=== PATIENT | female | born 1955 | race African-American/Black ===

== ENCOUNTER 2022-02-14 11:19 | Inpatient (IN) | payer MEDICARE, OTHER ==
[~2022-02-14 11:19] MED LIST: Iopamidol-370 76% 500 ML 1 ML ONE
[2022-02-14 14:42] LABS: #Lymphocytes 0.9 thou/uL (1.20-3.40); #Monocytes 0.5 thou/uL (0.11-0.59); #Neutrophils 4.2 thou/uL (1.40-6.50); %Basophils 0.7 % (0.0-1.0); %Eosinophils 0.4 % (0.0-10.0); %Lymphocytes 16.7 % (21.0-51.0); %Monocytes 7.9 % (0.0-10.0); %Neutrophils 74.2 % (42.0-75.0); Mean Corpuscular HGB CONC 32.6 g/dL (32.0-36.0); Mean Corpuscular Volume 86.1 fl (78.0-98.0); Mean Platelet Volume 9.6 fL (7.4-10.4); Platelet Count 179 10x3/uL (130-400); RBC Distribution Width 13.9 % (11.5-14.5); Red Blood Cell (RBC) Count 3.91 mill/uL (4.20-5.40); White Blood Cell (WBC) Count 5.6 10x3/uL (4.8-10.8)
[2022-02-14 14:55] LABS: INR-International Normal Ratio 1.2; PTT 28.2 sec (22.9-36.1); Prothrombin Time 15.2 sec (12.0-14.7)
[2022-02-14 15:03] LABS: ALT (SGPT) 12 U/L (8-55); AST (SGOT) 23 U/L (5-34); Albumin 3.7 g/dL (3.4-4.8); Alkaline Phosphatase 71 U/L (40-110); Anion Gap 13 mmol/L (10-20); BUN (Urea Nitrogen) 18 mg/dL (9.8-20.1); Bilirubin, Total 0.6 mg/dL (0.2-1.2); Calc. Creatinine Clearance 0 mL/min (70-130); Carbon Dioxide 22 mmol/L (23-31); Chloride 109 mmol/L (98-107); Estimated GFR 51; Globulin 3.2 g/dL (2.4-3.5); Glucose 104 mg/dL (80-115); Potassium 3.9 mmol/L (3.5-5.1); Protein, Total 6.9 g/dL (5.8-8.1); Sodium 140 mmol/L (136-145)
[2022-02-14 15:34] LABS: CKMB 7.6 ng/mL (0-6.6)
[2022-02-14] MEDS: Dextrose 5 %-0.45 % NaCl 1,000 ML IV SCH (17:38)
[2022-02-14] MEDS: Atorvastatin Calcium 40 MG TAB PO SCH (19:39)
[2022-02-14 22:26] LABS: Troponin I 0.569 ng/mL (< 0.028)
[2022-02-15 01:30] LABS: Troponin I 0.596 ng/mL (< 0.028)
[2022-02-15 05:46] LABS: Cardiac Risk 2.8 (Less than 4.5)
[2022-02-15] MEDS: Dextrose 5 %-0.45 % NaCl 1,000 ML IV SCH ×2 (06:17→18:18)
[2022-02-15] MEDS ORDERED: Aspirin 81 mg Enteric Coated Tablet PO SCH (09:00)
[2022-02-15] MEDS: Enoxaparin Sodium 40 MG/0.4 ML SYRINGE SC SCH (12:27)
[2022-02-15] MEDS: Clopidogrel Bisulfate 75 MG TAB PO SCH (12:27)
[2022-02-15] MEDS: Atorvastatin Calcium 40 MG TAB PO SCH (21:10)
[2022-02-16 05:26] LABS: Hemoglobin 10.6 g/dL (12.0-16.0); Mean Corpuscular HGB CONC 32.2 g/dL (32.0-36.0); Mean Corpuscular Hemoglobin 27.2 pg (27.0-31.0); Mean Corpuscular Volume 84.6 fl (78.0-98.0); Mean Platelet Volume 9.6 fL (7.4-10.4); Platelet Count 168 10x3/uL (130-400); RBC Distribution Width 13.7 % (11.5-14.5); Red Blood Cell (RBC) Count 3.88 mill/uL (4.20-5.40); White Blood Cell (WBC) Count 5.4 10x3/uL (4.8-10.8)
[2022-02-16 05:34] LABS: Anion Gap 13 mmol/L (10-20); BUN (Urea Nitrogen) 8 mg/dL (9.8-20.1); Calc. Creatinine Clearance 72 mL/min (70-130); Calcium 8.9 mg/dL (7.8-10.44); Carbon Dioxide 22 mmol/L (23-31); Chloride 109 mmol/L (98-107); Estimated GFR 65; Glucose 124 mg/dL (80-115); Potassium 3.7 mmol/L (3.5-5.1); Sodium 140 mmol/L (136-145)
[2022-02-16] MEDS: Dextrose 5 %-0.45 % NaCl 1,000 ML IV SCH ×2 (06:33→22:38)
[2022-02-16] MEDS: Aspirin 300 MG Suppository PR SCH (09:20)
[2022-02-16] MEDS: Enoxaparin Sodium 40 MG/0.4 ML SYRINGE SC SCH (09:20)
[2022-02-16] MEDS: Clopidogrel Bisulfate 75 MG TAB PO SCH (09:20)
[2022-02-16] MEDS: Atorvastatin Calcium 40 MG TAB PO SCH (22:38)
[2022-02-17] MEDS: Atorvastatin Calcium 40 MG TAB PO SCH (06:11)
[2022-02-17] MEDS: Dextrose 5 %-0.45 % NaCl 1,000 ML IV SCH (09:01)
[2022-02-17] MEDS: Enoxaparin Sodium 40 MG/0.4 ML SYRINGE SC SCH (09:01)
[2022-02-17] MEDS: Clopidogrel Bisulfate 75 MG TAB PO SCH (09:20)
[2022-02-17] MEDS: Aspirin 300 MG Suppository PR SCH (09:20)
[2022-02-17] MEDS ORDERED: Carvedilol 25 MG TAB PER TUBE SCH (11:00)
[2022-02-17] MEDS ORDERED: Furosemide 20 MG/2 ML VIAL SLOW IVP SCH (11:00)
[2022-02-17] MEDS ORDERED: FLU VACC QS2022-23(65YR UP)/PF 240 MCG/0.7 ML SYRINGE IM ONE (17:45)
[2022-02-17] MEDS: Carvedilol 25 MG TAB PER TUBE SCH (22:50)
[2022-02-17] MEDS: Atorvastatin Calcium 40 MG TAB PER TUBE SCH (22:50)
[2022-02-17] MEDS: Furosemide 20 MG/2 ML VIAL SLOW IVP SCH (22:52)
[2022-02-18 06:47] LABS: #Eosinphils 0.2 thou/uL (0.0-0.7); #Lymphocytes 1.8 thou/uL (1.20-3.40); #Monocytes 0.6 thou/uL (0.11-0.59); #Neutrophils 2.8 thou/uL (1.40-6.50); %Basophils 0.7 % (0.0-1.0); %Eosinophils 3.4 % (0.0-10.0); %Lymphocytes 33.2 % (21.0-51.0); %Monocytes 11.1 % (0.0-10.0); %Neutrophils 51.5 % (42.0-75.0); Hemoglobin 12.4 g/dL (12.0-16.0); Mean Corpuscular HGB CONC 32.8 g/dL (32.0-36.0); Mean Corpuscular Hemoglobin 27.7 pg (27.0-31.0); Mean Corpuscular Volume 84.6 fl (78.0-98.0); Mean Platelet Volume 9.8 fL (7.4-10.4); Platelet Count 198 10x3/uL (130-400); RBC Distribution Width 13.3 % (11.5-14.5); Red Blood Cell (RBC) Count 4.49 mill/uL (4.20-5.40); White Blood Cell (WBC) Count 5.3 10x3/uL (4.8-10.8)
[2022-02-18 07:07] LABS: Anion Gap 17 mmol/L (10-20); BUN (Urea Nitrogen) 15 mg/dL (9.8-20.1); Calc. Creatinine Clearance 66 mL/min (70-130); Calcium 9.3 mg/dL (7.8-10.44); Carbon Dioxide 23 mmol/L (23-31); Chloride 103 mmol/L (98-107); Estimated GFR 59; Glucose 117 mg/dL (80-115); Magnesium 1.3 mg/dL (1.6-2.6); Potassium 3.6 mmol/L (3.5-5.1); Sodium 139 mmol/L (136-145)
[2022-02-18] MEDS ORDERED: Magnesium Sulfate In Water 4 GM in Premix Bag 1 BAG IVPB SCH (08:00)
[2022-02-18] MEDS: Clopidogrel Bisulfate 75 MG TAB PER TUBE SCH (08:35)
[2022-02-18] MEDS: Carvedilol 25 MG TAB PER TUBE SCH ×2 (08:35→21:17)
[2022-02-18] MEDS: Aspirin 300 MG Suppository PR SCH (08:35)
[2022-02-18] MEDS: Enoxaparin Sodium 40 MG/0.4 ML SYRINGE SC SCH (08:35)
[2022-02-18] MEDS: Furosemide 20 MG/2 ML VIAL SLOW IVP SCH ×2 (08:36→21:17)
[2022-02-18] MEDS ORDERED: Losartan 25 MG TAB PER TUBE SCH (09:00)
[2022-02-18 16:36] LABS: Actual Bicarbonate (HCO3a) 27.1 mEq/L (22-28); Base Excess (BEa) 3.6 mEq/L (-2.0 to +3.0); CO2 Tension 37.2 mmHg (35.0-45.0); Calcium, Ionized (arterial) 1.21 mmol/L (1.12-1.30); Carboxyhemoglobin (COHb) 0.3 gm% (0.0-3.0); Hemoglobin (Hb) 12.6 g/dL (12.0-16.0); O2 Tension (PaO2), arterial 78.6 mmHg (> 80.0); Potassium - ABG Lab 3.84 mmol/L (3.70-5.30); pH, Arterial 7.48 (7.35-7.45)
[2022-02-18 16:39] LABS: Puncture Site RBA
[2022-02-18] MEDS ORDERED: Dexamethasone 4 mg/ml Vial SLOW IVP SCH ×2 (17:45→18:00)
[2022-02-18] MEDS ORDERED: Dexamethasone 4 MG in Sodium Chloride 0.9% 50 ML IVPB SCH (17:45)
[2022-02-18] MEDS ORDERED: Mannitol 12.5 GM/50 ML SLOW IVP SCH (19:15)
[2022-02-18] MEDS: Sodium Chloride 0.9% 1,000 ML IV SCH (19:28)
[2022-02-18] MEDS: Pantoprazole 40 MG VIAL IVP SCH (21:17)
[2022-02-18] MEDS: Atorvastatin Calcium 40 MG TAB PER TUBE SCH (21:17)
[2022-02-19 04:22] LABS: #Eosinphils 0.1 thou/uL (0.0-0.7); #Lymphocytes 1.4 thou/uL (1.20-3.40); #Monocytes 0.7 thou/uL (0.11-0.59); #Neutrophils 4.4 thou/uL (1.40-6.50); %Basophils 0.6 % (0.0-1.0); %Eosinophils 1.8 % (0.0-10.0); %Lymphocytes 20.6 % (21.0-51.0); %Monocytes 10.4 % (0.0-10.0); %Neutrophils 66.6 % (42.0-75.0); Hemoglobin 11.4 g/dL (12.0-16.0); Mean Corpuscular HGB CONC 32.2 g/dL (32.0-36.0); Mean Corpuscular Hemoglobin 27.5 pg (27.0-31.0); Mean Corpuscular Volume 85.4 fl (78.0-98.0); Mean Platelet Volume 9.9 fL (7.4-10.4); Platelet Count 206 10x3/uL (130-400); RBC Distribution Width 13.3 % (11.5-14.5); Red Blood Cell (RBC) Count 4.15 mill/uL (4.20-5.40); White Blood Cell (WBC) Count 6.6 10x3/uL (4.8-10.8)
[2022-02-19 04:43] LABS: Anion Gap 17 mmol/L (10-20); BUN (Urea Nitrogen) 27 mg/dL (9.8-20.1); Calc. Creatinine Clearance 43 mL/min (70-130); Carbon Dioxide 23 mmol/L (23-31); Chloride 103 mmol/L (98-107); Estimated GFR 35; Glucose 175 mg/dL (80-115); Magnesium 2.2 mg/dL (1.6-2.6); Potassium 3.7 mmol/L (3.5-5.1); Sodium 139 mmol/L (136-145)
[2022-02-19] MEDS: Carvedilol 25 MG TAB PER TUBE SCH ×2 (10:06→20:09)
[2022-02-19] MEDS: Pantoprazole 40 MG VIAL IVP SCH ×2 (10:06→20:09)
[2022-02-19] MEDS: Furosemide 20 MG/2 ML VIAL SLOW IVP SCH ×2 (10:06→20:09)
[2022-02-19] MEDS: Losartan 25 MG TAB PER TUBE SCH (10:07)
[2022-02-19] MEDS: Sodium Chloride 0.9% 1,000 ML IV SCH (15:16)
[2022-02-19] MEDS: Atorvastatin Calcium 40 MG TAB PER TUBE SCH (20:09)
[2022-02-20 04:17] LABS: #Eosinphils 0.2 thou/uL (0.0-0.7); #Lymphocytes 2.1 thou/uL (1.20-3.40); #Monocytes 1.1 thou/uL (0.11-0.59); %Basophils 0.1 % (0.0-1.0); %Eosinophils 1.9 % (0.0-10.0); %Lymphocytes 24.5 % (21.0-51.0); %Monocytes 13.4 % (0.0-10.0); Hemoglobin 11.1 g/dL (12.0-16.0); Mean Corpuscular HGB CONC 32.3 g/dL (32.0-36.0); Mean Corpuscular Hemoglobin 27.2 pg (27.0-31.0); Mean Corpuscular Volume 84.3 fl (78.0-98.0); Mean Platelet Volume 9.7 fL (7.4-10.4); Platelet Count 211 10x3/uL (130-400); RBC Distribution Width 13.2 % (11.5-14.5); Red Blood Cell (RBC) Count 4.08 mill/uL (4.20-5.40); White Blood Cell (WBC) Count 8.4 10x3/uL (4.8-10.8)
[2022-02-20 04:24] LABS: Anion Gap 16 mmol/L (10-20); BUN (Urea Nitrogen) 37 mg/dL (9.8-20.1); Calc. Creatinine Clearance 40 mL/min (70-130); Calcium 9.1 mg/dL (7.8-10.44); Carbon Dioxide 23 mmol/L (23-31); Chloride 105 mmol/L (98-107); Estimated GFR 33; Glucose 133 mg/dL (80-115); Magnesium 1.9 mg/dL (1.6-2.6); Potassium 4.3 mmol/L (3.5-5.1); Sodium 140 mmol/L (136-145)
[2022-02-20] MEDS: Carvedilol 25 MG TAB PER TUBE SCH ×2 (10:34→20:52)
[2022-02-20] MEDS: Furosemide 20 MG/2 ML VIAL SLOW IVP SCH ×2 (10:35→20:53)
[2022-02-20] MEDS: Pantoprazole 40 MG VIAL IVP SCH ×2 (10:35→20:53)
[2022-02-20] MEDS: Losartan 25 MG TAB PER TUBE SCH (10:35)
[2022-02-20] MEDS: Sodium Chloride 0.9% 1,000 ML IV SCH (10:36)
[2022-02-20] MEDS ORDERED: Albumin 25% 25 GM/100 ML BOT IVPB SCH (12:30)
[2022-02-20] MEDS: Albumin 25% 25 GM/100 ML BOT IVPB SCH (16:56)
[2022-02-20] MEDS: Atorvastatin Calcium 40 MG TAB PER TUBE SCH (20:52)
[2022-02-21] MEDS: Albumin 25% 25 GM/100 ML BOT IVPB SCH ×2 (00:57→05:14)
[2022-02-21 04:13] LABS: #Eosinphils 0.2 thou/uL (0.0-0.7); #Lymphocytes 1.6 thou/uL (1.20-3.40); #Monocytes 0.9 thou/uL (0.11-0.59); #Neutrophils 4.4 thou/uL (1.40-6.50); %Basophils 0.4 % (0.0-1.0); %Eosinophils 2.6 % (0.0-10.0); %Lymphocytes 22.2 % (21.0-51.0); %Monocytes 12.4 % (0.0-10.0); %Neutrophils 62.5 % (42.0-75.0); Hemoglobin 9.5 g/dL (12.0-16.0); Mean Corpuscular Volume 84.4 fl (78.0-98.0); Mean Platelet Volume 9.8 fL (7.4-10.4); Platelet Count 200 10x3/uL (130-400); RBC Distribution Width 13.2 % (11.5-14.5); Red Blood Cell (RBC) Count 3.51 mill/uL (4.20-5.40); White Blood Cell (WBC) Count 7.1 10x3/uL (4.8-10.8)
[2022-02-21 04:29] LABS: Anion Gap 16 mmol/L (10-20); BUN (Urea Nitrogen) 44 mg/dL (9.8-20.1); Calc. Creatinine Clearance 46 mL/min (70-130); Calcium 9.7 mg/dL (7.8-10.44); Carbon Dioxide 26 mmol/L (23-31); Chloride 105 mmol/L (98-107); Estimated GFR 37; Glucose 140 mg/dL (80-115); Magnesium 2.1 mg/dL (1.6-2.6); Potassium 4.3 mmol/L (3.5-5.1); Sodium 143 mmol/L (136-145)
[2022-02-21] MEDS: Sodium Chloride 0.9% 1,000 ML IV SCH ×3 (06:16→18:56)
[2022-02-21] MEDS: Carvedilol 25 MG TAB PER TUBE SCH ×2 (10:04→21:01)
[2022-02-21] MEDS: Furosemide 20 MG/2 ML VIAL SLOW IVP SCH ×2 (10:04→21:02)
[2022-02-21] MEDS: Pantoprazole 40 MG VIAL IVP SCH ×2 (10:05→21:02)
[2022-02-21] MEDS: Atorvastatin Calcium 40 MG TAB PER TUBE SCH (21:01)
[2022-02-22 05:40] LABS: #Eosinphils 0.3 thou/uL (0.0-0.7); #Lymphocytes 1.9 thou/uL (1.20-3.40); #Monocytes 0.9 thou/uL (0.11-0.59); #Neutrophils 4.6 thou/uL (1.40-6.50); %Basophils 0.3 % (0.0-1.0); %Eosinophils 3.7 % (0.0-10.0); %Lymphocytes 24.7 % (21.0-51.0); %Monocytes 11.5 % (0.0-10.0); %Neutrophils 59.8 % (42.0-75.0); Hemoglobin 10.2 g/dL (12.0-16.0); Mean Corpuscular HGB CONC 31.6 g/dL (32.0-36.0); Mean Corpuscular Hemoglobin 27.2 pg (27.0-31.0); Mean Corpuscular Volume 86.1 fl (78.0-98.0); Platelet Count 224 10x3/uL (130-400); RBC Distribution Width 13.3 % (11.5-14.5); Red Blood Cell (RBC) Count 3.74 mill/uL (4.20-5.40); White Blood Cell (WBC) Count 7.7 10x3/uL (4.8-10.8)
[2022-02-22] MEDS: Sodium Chloride 0.9% 1,000 ML IV SCH ×2 (05:47→15:30)
[2022-02-22 05:57] LABS: Anion Gap 14 mmol/L (10-20); BUN (Urea Nitrogen) 46 mg/dL (9.8-20.1); Calc. Creatinine Clearance 49 mL/min (70-130); Carbon Dioxide 27 mmol/L (23-31); Chloride 105 mmol/L (98-107); Estimated GFR 39; Glucose 140 mg/dL (80-115); Magnesium 1.9 mg/dL (1.6-2.6); Potassium 4.6 mmol/L (3.5-5.1); Sodium 141 mmol/L (136-145)
[2022-02-22] MEDS: Carvedilol 25 MG TAB PER TUBE SCH ×2 (09:25→20:40)
[2022-02-22] MEDS: Pantoprazole 40 MG VIAL IVP SCH ×2 (09:28→20:40)
[2022-02-22] MEDS: Furosemide 20 MG/2 ML VIAL SLOW IVP SCH ×2 (09:28→20:40)
[2022-02-22] MEDS: Atorvastatin Calcium 40 MG TAB PER TUBE SCH (20:40)
[2022-02-23] MEDS: Sodium Chloride 0.9% 1,000 ML IV SCH ×2 (01:23→10:09)
[2022-02-23 06:30] LABS: #Eosinphils 0.3 thou/uL (0.0-0.7); #Lymphocytes 1.8 thou/uL (1.20-3.40); #Monocytes 0.8 thou/uL (0.11-0.59); #Neutrophils 4.2 thou/uL (1.40-6.50); %Basophils 0.5 % (0.0-1.0); %Eosinophils 3.6 % (0.0-10.0); %Lymphocytes 24.7 % (21.0-51.0); %Monocytes 11.8 % (0.0-10.0); %Neutrophils 59.5 % (42.0-75.0); Hemoglobin 10.5 g/dL (12.0-16.0); Mean Corpuscular HGB CONC 33.4 g/dL (32.0-36.0); Mean Corpuscular Hemoglobin 28.3 pg (27.0-31.0); Mean Corpuscular Volume 84.7 fl (78.0-98.0); Mean Platelet Volume 9.6 fL (7.4-10.4); Platelet Count 253 10x3/uL (130-400); RBC Distribution Width 12.9 % (11.5-14.5); Red Blood Cell (RBC) Count 3.73 mill/uL (4.20-5.40); White Blood Cell (WBC) Count 7.1 10x3/uL (4.8-10.8)
[2022-02-23 06:43] LABS: Anion Gap 15 mmol/L (10-20); BUN (Urea Nitrogen) 45 mg/dL (9.8-20.1); Calc. Creatinine Clearance 52 mL/min (70-130); Calcium 9.8 mg/dL (7.8-10.44); Carbon Dioxide 23 mmol/L (23-31); Chloride 104 mmol/L (98-107); Estimated GFR 43; Glucose 146 mg/dL (80-115); Potassium 4.4 mmol/L (3.5-5.1); Sodium 138 mmol/L (136-145)
[2022-02-23] MEDS: Furosemide 20 MG/2 ML VIAL SLOW IVP SCH ×2 (10:01→22:01)
[2022-02-23] MEDS: Carvedilol 25 MG TAB PER TUBE SCH ×2 (10:01→22:01)
[2022-02-23] MEDS: Pantoprazole 40 MG VIAL IVP SCH ×2 (10:01→22:02)
[2022-02-23 15:44] VITALS: BMI 31.6
[2022-02-23] MEDS: Atorvastatin Calcium 40 MG TAB PER TUBE SCH (22:01)
[2022-02-24] MEDS ORDERED: Acetaminophen 650 MG Suppository PR PRN (00:11)
[2022-02-24 06:17] LABS: #Eosinphils 0.2 thou/uL (0.0-0.7); #Lymphocytes 2.2 thou/uL (1.20-3.40); #Monocytes 0.9 thou/uL (0.11-0.59); #Neutrophils 3.6 thou/uL (1.40-6.50); %Basophils 0.4 % (0.0-1.0); %Eosinophils 2.9 % (0.0-10.0); %Lymphocytes 31.3 % (21.0-51.0); %Neutrophils 52.4 % (42.0-75.0); Hemoglobin 11.1 g/dL (12.0-16.0); Mean Corpuscular HGB CONC 31.8 g/dL (32.0-36.0); Mean Corpuscular Hemoglobin 27.1 pg (27.0-31.0); Mean Corpuscular Volume 85.2 fl (78.0-98.0); Mean Platelet Volume 9.6 fL (7.4-10.4); Platelet Count 272 10x3/uL (130-400); RBC Distribution Width 13.1 % (11.5-14.5); Red Blood Cell (RBC) Count 4.09 mill/uL (4.20-5.40); White Blood Cell (WBC) Count 6.9 10x3/uL (4.8-10.8)
[2022-02-24 06:27] LABS: Anion Gap 16 mmol/L (10-20); BUN (Urea Nitrogen) 48 mg/dL (9.8-20.1); Calc. Creatinine Clearance 43 mL/min (70-130); Carbon Dioxide 25 mmol/L (23-31); Chloride 106 mmol/L (98-107); Estimated GFR 34; Glucose 139 mg/dL (80-115); Potassium 4.3 mmol/L (3.5-5.1); Sodium 143 mmol/L (136-145)
[2022-02-24] MEDS: Carvedilol 25 MG TAB PER TUBE SCH ×2 (09:30→22:59)
[2022-02-24] MEDS: Furosemide 20 MG/2 ML VIAL SLOW IVP SCH ×2 (10:12→23:00)
[2022-02-24] MEDS: Pantoprazole 40 MG VIAL IVP SCH ×2 (10:13→23:00)
[2022-02-24] MEDS: Glycopyrrolate 0.2 MG/ML 5 ML SYRINGE SLOW IVP SCH (16:57)
[2022-02-24] MEDS ORDERED: Acetaminophen 500 MG TAB PER TUBE PRN (20:32)
[2022-02-24] MEDS: Atorvastatin Calcium 40 MG TAB PER TUBE SCH (23:00)
[2022-02-24] MEDS: Morphine 4 MG/ML VIAL SLOW IVP PRN (23:02)
[2022-02-25] MEDS: Glycopyrrolate 0.2 MG/ML 5 ML SYRINGE SLOW IVP SCH ×4 (01:53→17:56)
[2022-02-25] MEDS: Morphine 4 MG/ML VIAL SLOW IVP PRN ×3 (03:57→20:47)
[2022-02-25] MEDS: Furosemide 20 MG/2 ML VIAL SLOW IVP SCH (12:49)
[2022-02-25] MEDS: Pantoprazole 40 MG VIAL IVP SCH (12:49)
[2022-02-25] MEDS: Lorazepam 2 MG/ML VIAL SLOW IVP PRN ×2 (13:11→20:46)
[2022-02-25] MEDS: Aspirin 300 MG Suppository PR SCH (14:05)
[2022-02-25] MEDS: Clopidogrel Bisulfate 75 MG TAB PER TUBE SCH (14:06)
[2022-02-25] MEDS: Enoxaparin Sodium 40 MG/0.4 ML SYRINGE SC SCH (14:06)
[2022-02-26] MEDS: Pantoprazole 40 MG VIAL IVP SCH ×2 (02:47→09:41)
[2022-02-26] MEDS: Furosemide 20 MG/2 ML VIAL SLOW IVP SCH ×2 (02:47→09:40)
[2022-02-26] MEDS: Glycopyrrolate 0.2 MG/ML 5 ML SYRINGE SLOW IVP SCH ×3 (02:48→09:41)
[2022-02-26] MEDS: Lorazepam 2 MG/ML VIAL SLOW IVP PRN ×2 (04:11→11:54)
[2022-02-26] MEDS: Morphine 4 MG/ML VIAL SLOW IVP PRN ×3 (04:12→13:42)
[2022-02-26 06:38] LABS: Anion Gap 19 mmol/L (10-20); BUN (Urea Nitrogen) 64 mg/dL (9.8-20.1); Calc. Creatinine Clearance 38 mL/min (70-130); Calcium 10.3 mg/dL (7.8-10.44); Carbon Dioxide 20 mmol/L (23-31); Chloride 109 mmol/L (98-107); Estimated GFR 29; Glucose 104 mg/dL (80-115); Potassium 4.9 mmol/L (3.5-5.1); Sodium 143 mmol/L (136-145)
[2022-02-26 11:47] VITALS: BP 164/71; TEMP 97.3
== END 2022-02-26 15:12 | disposition hospice, inpatient (51) | DRG 64 ==
LOC: ERS 11:19 → NEURO 13:44 → IMCU/EMU 02-18 19:38 → NEURO 02-21 18:42
PROVIDERS: ADMIT Student in an Organized Health Care Education/Training Program; ATTEND Internal Medicine
PROC: 0DH68UZ Insertion of Feeding Device into Stomach, Via Natural or Artificial Opening Endoscopic (ICD-10-PCS; principal; 2022-02-17)
DX: I63.512 Cerebral infarction due to unspecified occlusion or stenosis of left middle cerebral artery (principal); G93.6 Cerebral edema; I21.A1 Myocardial infarction type 2; I50.23 Acute on chronic systolic (congestive) heart failure; G81.94 Hemiplegia, unspecified affecting left nondominant side; I42.0 Dilated cardiomyopathy; N17.9 Acute kidney failure, unspecified; G93.40 Encephalopathy, unspecified; I13.0 Hypertensive heart and chronic kidney disease with heart failure and stage 1 through stage 4 chronic kidney disease, or unspecified chronic kidney disease; Z66 Do not resuscitate; K21.9 Gastro-esophageal reflux disease without esophagitis; E78.5 Hyperlipidemia, unspecified; Z20.822 Contact with and (suspected) exposure to COVID-19; F17.210 Nicotine dependence, cigarettes, uncomplicated; R29.730 NIHSS score 30; I73.9 Peripheral vascular disease, unspecified; G93.89 Other specified disorders of brain; J44.9 Chronic obstructive pulmonary disease, unspecified; R13.12 Dysphagia, oropharyngeal phase; N18.2 Chronic kidney disease, stage 2 (mild); E66.9 Obesity, unspecified; D63.1 Anemia in chronic kidney disease; Z88.2 Allergy status to sulfonamides; Z88.8 Allergy status to other drugs, medicaments and biological substances; Z79.899 Other long term (current) drug therapy; Z68.31 Body mass index [BMI] 31.0-31.9, adult
CPT/HCPCS: 0042T; 36415; 36416; 36600; 70450; 70496; 70498; 70551; 71045; 74018; 80048; 80053; 80061; 82553; 82805; 83735; 83880; 84484; 85025; 85027; 85610; 85730; 93005; 93010; 93306; 94760; 95712; 95819; 95957; C9113; J1100; J1650; J1940; J2060; J2150; J2270; J3475; J7042; J7050; P9047; Q9967; U0003; U0005

== ENCOUNTER 2022-02-26 15:14 | Inpatient (IN) | payer OTHER ==
[2022-02-26 15:37] VITALS: BMI 31.7
[2022-02-26] MEDS ORDERED: Bisacodyl 10 MG SUPP PR PRN (15:44)
[2022-02-26] MEDS ORDERED: Ondansetron PF 4 MG/2 ML Vial IVP PRN (15:45)
[2022-02-26] MEDS ORDERED: Haloperidol Lactate 5 MG/ML VIAL SLOW IVP PRN (15:45)
[2022-02-26] MEDS ORDERED: Acetaminophen 650 MG Suppository PR PRN (15:45)
[2022-02-26] MEDS ORDERED: Scopolamine 1.5 mg/72 hour Patch TOP PRN (15:45)
[2022-02-26] MEDS: Morphine 4 MG/ML VIAL SLOW IVP PRN (17:18)
[2022-02-26] MEDS: Lorazepam 2 MG/ML VIAL SLOW IVP PRN (18:12)
[2022-02-27] MEDS: Morphine 4 MG/ML VIAL SLOW IVP PRN ×3 (08:45→17:55)
[2022-02-27] MEDS ORDERED: FLU VACC QS2022-23(65YR UP)/PF 240 MCG/0.7 ML SYRINGE IM ONE (09:00)
[2022-02-27] MEDS: Lorazepam 2 MG/ML VIAL SLOW IVP PRN (12:16)
[2022-02-28] MEDS: Morphine 4 MG/ML VIAL SLOW IVP PRN ×4 (02:55→21:19)
[2022-02-28] MEDS: Lorazepam 2 MG/ML VIAL SLOW IVP PRN ×2 (10:54→16:52)
[2022-03-01] MEDS: Lorazepam 2 MG/ML VIAL SLOW IVP PRN ×3 (00:07→11:13)
[2022-03-01] MEDS: Morphine 4 MG/ML VIAL SLOW IVP PRN ×5 (02:01→23:10)
[2022-03-01] MEDS ORDERED: Glycopyrrolate 0.2 MG/ML 5 ML SYRINGE SLOW IVP PRN (09:33)
[2022-03-01] MEDS: diphenhydrAMINE 50 MG/ML VIAL IVP PRN (21:19)
[2022-03-02] MEDS: Morphine 4 MG/ML VIAL SLOW IVP PRN ×5 (02:21→23:09)
[2022-03-02] MEDS: diphenhydrAMINE 50 MG/ML VIAL IVP PRN (04:45)
[2022-03-02] MEDS: Lorazepam 2 MG/ML VIAL SLOW IVP PRN ×3 (04:45→18:38)
[2022-03-03] MEDS: Morphine 4 MG/ML VIAL SLOW IVP PRN ×4 (10:49→22:14)
[2022-03-03] MEDS: Lorazepam 2 MG/ML VIAL SLOW IVP PRN (12:58)
[2022-03-03] MEDS: diphenhydrAMINE 50 MG/ML VIAL IVP PRN (22:14)
[2022-03-04] MEDS: Morphine 4 MG/ML VIAL SLOW IVP PRN ×3 (06:04→18:12)
[2022-03-06] MEDS ORDERED: Scopolamine 1.5 mg/72 hour Patch TOP PRN (15:39)
[2022-03-06] MEDS ORDERED: Acetaminophen 650 MG Suppository PR PRN (15:39)
[2022-03-06] MEDS ORDERED: diphenhydrAMINE 50 MG/ML VIAL IVP PRN (15:40)
[2022-03-06] MEDS ORDERED: Ondansetron PF 4 MG/2 ML Vial IVP PRN (15:40)
[2022-03-06] MEDS ORDERED: Lorazepam 2 MG/ML VIAL SLOW IVP PRN (15:40)
[2022-03-06] MEDS ORDERED: Haloperidol Lactate 5 MG/ML VIAL SLOW IVP PRN (15:40)
[2022-03-06] MEDS ORDERED: Bisacodyl 10 MG SUPP PR PRN (15:40)
[2022-03-06] MEDS ORDERED: Glycopyrrolate 0.2 MG/ML 5 ML SYRINGE SLOW IVP PRN (15:41)
[2022-03-06] MEDS: Morphine 4 MG/ML VIAL SLOW IVP PRN ×2 (15:49→23:46)
[2022-03-06 20:32] VITALS: BP 93/57; TEMP 97.9
== END 2022-03-07 05:30 | disposition expired | DRG 951 ==
LOC: NEURO 15:14 → MSONC 16:58 → UNDODISIN 03-06 13:58
PROVIDERS: ADMIT Family Medicine; ATTEND Family Medicine
DX: Z51.5 Encounter for palliative care (principal); I63.9 Cerebral infarction, unspecified; Z66 Do not resuscitate; I73.9 Peripheral vascular disease, unspecified; I11.0 Hypertensive heart disease with heart failure; I50.9 Heart failure, unspecified; N28.9 Disorder of kidney and ureter, unspecified; Z86.718 Personal history of other venous thrombosis and embolism; Z88.8 Allergy status to other drugs, medicaments and biological substances; Z88.2 Allergy status to sulfonamides
CPT/HCPCS: J1200; J2060; J2270